=== PATIENT | female | born 1990 | race Caucasian/White ===

== ENCOUNTER → 2016-12-25 | Outpatient (CLI) | payer BC ==
[2016-12-25 12:10] LABS: Anion Gap 15 mmol/L; Blood Urea Nitrogen 26 mg/dL (7-17); Calcium 9.9 mg/dL (8.4-10.2); Carbon Dioxide 23 mmol/L (22-30); Chloride 108 mmol/L (98-107); Glucose 128 mg/dL (74-99); Non-African American GFR(MDRD) >60 (>60 ml/min/1.73 sqM); Potassium 3.9 mmol/L (3.5-5.1); Sodium 146 mmol/L (137-145)
== END | disposition home or self-care (01) ==
LOC: LABWHC1 11:32
PROVIDERS: ATTEND Internal Medicine
DX: E66.8 Other obesity (principal); E23.3 Hypothalamic dysfunction, not elsewhere classified; G90.8 Other disorders of autonomic nervous system; G47.35 Congenital central alveolar hypoventilation syndrome; Q87.89 Other specified congenital malformation syndromes, not elsewhere classified
CPT/HCPCS: 36415; 80048

== ENCOUNTER 2017-02-21 23:24 | Emergency (ER) | payer BC ==
[2017-02-21 23:27] LABS: Glucose,Whole Blood >600 mg/dL (75-99)
[2017-02-21 23:36] VITALS: RESP 18
[2017-02-21] MEDS ORDERED: INSULIN REGULAR 100 UNIT/ML VIAL IV ONE (23:38)
[2017-02-21] MEDS ORDERED: SODIUM CHLORIDE 0.9% 1,000 ML IV ONE (23:38)
[2017-02-21] MEDS ORDERED: INSULIN REGULAR 100 UNIT in SODIUM CHLORIDE 0.9% 100 ML IV ONE (23:38)
--- NOTE | 2017-02-21 23:42 | ED ---
General Adult HPI - General Chief complaint: Recheck/Abnormal Lab/Rx Stated complaint: Hyperglycemia Time Seen by Provider: 02/21/17 23:25 Source: EMS, RN notes reviewed Mode of arrival: EMS Limitations: no limitations - History of Present Illness Initial comments: This is a 26-year-old female who presents emergency Department with a past medical history significant for a endocrine disorder which causes her to be hyper a tree make hypokalemic and hyperglycemic. Patient comes in today because she started to have severe leg cramps and that usually indicates that she has hypokalemic. Patient also noted that her sugar was very high this evening she called EMS to come to the emergency department. Patient normally is seen at [facility]. Patient denies any recent fever chills or cough. Patient denies any difficulty breathing first breath per patient denies any chest pain or palpitations. Patient denies lightheadedness dizziness or near syncopal episode. Patient denies any abdominal pain patient denies nausea vomiting diarrhea. Patient complains of both legs being painful and this typical of her illness. - Related Data Home Medications Medication Instructions Recorded Confirmed Cholecalciferol [Vitamin D3] 1,000 unit PO BID 06/17/15 06/17/15 Desmopressin Intranasal [Ddavp 10 mcg NASAL BID 06/17/15 06/17/15 Nasal [place]] Estradiol [Climara 0.1 MG] 1 patch TRANSDERM Q7D 06/17/15 06/17/15 Glucagon Emergency Kit 1 mg SQ ONCE 06/17/15 06/17/15 Insulin Regular [HumuLIN R] 0 units SQ DIRECTED 06/17/15 06/17/15 Levothyroxine Sodium [Synthroid] 175 mcg PO DAILY 06/17/15 06/17/15 Liraglutide [Victoza 3-Ashkan] 1.8 mg SQ DAILY 06/17/15 06/17/15 Medroxyprogesterone Acetate 5 mg PO DAILY 06/17/15 06/17/15 [Provera] Potassium Bicarbonate/Cit AC 25 meq PO DAILY 06/17/15 06/17/15 [Klor-Con 25 (Effer. Tab)] Tretinoin [Retin-A] 45 gm TP DAILY 06/17/15 06/17/15 metFORMIN HCL [Riomet] 1,000 mg PO BID 06/17/15 06/17/15 Allergies Allergy/AdvReac Type Severity Reaction Status Date / Time Cephalosporins Allergy Rash/Hives Verified 03/27/15 20:59 Penicillins Allergy Rash/Hives Verified 03/27/15 20:59 Review of Systems ROS Statement: Those systems with pertinent positive or pertinent negative responses have been documented in the HPI. ROS Other: All systems not noted in ROS Statement are negative. Past Medical History Additional Past Medical History / Comment(s): Rohhad History of Any Multi-Drug Resistant Organisms: None Reported Past Surgical History: Orthopedic Surgery Additional Past Surgical History / Comment(s): coccyx removed, Past Psychological History: No Psychological Hx Reported Smoking Status: Never smoker Past Alcohol Use History: None Reported Past Drug Use History: None Reported General Exam - General Exam Comments Initial Comments: GENERAL: Patient is well-developed and well-nourished. Patient is nontoxic and well- hydrated and is in mild distress. ENT: Neck is soft and supple. No significant lymphadenopathy is noted. Oropharynx is clear. Moist mucous membranes. Neck has full range of motion without eliciting any pain. EYES: The sclera were anicteric and conjunctiva were pink and moist. Extraocular movements were intact and pupils were equal round and reactive to light. Eyelids were unremarkable. PULMONARY: Unlabored respirations. Good breath sounds bilaterally. No audible rales rhonchi or wheezing was noted. CARDIOVASCULAR: There is a regular rate and rhythm without any murmurs gallops or rubs. ABDOMEN: Soft and nontender with normal bowel sounds. No palpable organomegaly was noted. There is no palpable pulsatile mass. SKIN: Skin is clear with no lesions or rashes and otherwise unremarkable. NEUROLOGIC: Patient is alert and oriented x3. Cranial nerves II through XII are grossly intact. Motor and sensory are also intact. Normal speech, volume and content. Symmetrical smile. MUSCULOSKELETAL: Normal extremities with adequate strength and full range of motion. LYMPHATICS: No significant lymphadenopathy is noted PSYCHIATRIC: Normal psychiatric evaluation. Normal interpersonal interactions appears functionally intact in deals appropriately with others. No signs of depression. No signs of anxiety. Limitations: no limitations Course Vital Signs 02/21/17 02/22/17 02/22/17 23:24 00:09 00:25 Temperature 98.2 F Pulse Rate 119 H 118 H Pulse Rate [ 118 H Pulse Oximetery ] Respiratory 18 18 Rate Blood Pressure 140/85 138/78 O2 Sat by Pulse 93 L 94 L Oximetry 02/22/17 01:11 Temperature Pulse Rate 120 H Pulse Rate [ Pulse Oximetery ] Respiratory 18 Rate Blood Pressure 146/65 O2 Sat by Pulse 93 L Oximetry Medical Decision Making - Medical Decision Making EKG shows sinus tachycardia at a rate of 120 bpm OR interval is on 26 QRS is 80 QT interval 352 QTC is 497. Patient's EKG shows no ST segment elevation no ST segment depression. Patient's sugar was 868 in the sodium was 168. I gave the patient 2 L of fluid I started the patient on insulin drip after insulin bolus. I then called the epic beacon analyst at the [facility] he was on board with D done he wanted the patient transferred to [facility]. I spoke with the ER there Dr. Landaverde. He except that the patient transferred the patient to [facility]. - Lab Data Result diagrams: 02/21/17 23:42 02/21/17 23:42 Lab Results 02/21/17 02/21/17 02/21/17 Range/Units 23:26 23:42 23:42 WBC 3.7 L (3.8-10.6) k/uL RBC 5.03 (3.80-5.40) m/uL Hgb 14.0 (11.4-16.0) gm/dL Hct 46.2 H (34.0-46.0) % MCV 91.7 (80.0-100.0) fL MCH 27.7 (25.0-35.0) pg MCHC 30.2 L (31.0-37.0) g/dL RDW 19.4 H (11.5-15.5) % Plt Count 122 L (150-450) k/uL Neutrophils % 47 % Lymphocytes % 42 % Monocytes % 5 % Eosinophils % 2 % Basophils % 1 % Neutrophils # 1.8 (1.3-7.7) k/uL Lymphocytes # 1.6 (1.0-4.8) k/uL Monocytes # 0.2 (0-1.0) k/uL Eosinophils # 0.1 (0-0.7) k/uL Basophils # 0.0 (0-0.2) k/uL Hypochromasia Marked Poikilocytosis Slight Anisocytosis Slight Sodium 168 H* (137-145) mmol/L Potassium 3.6 (3.5-5.1) mmol/L Chloride 128 H* (98-107) mmol/L Carbon Dioxide 22 (22-30) mmol/L Anion Gap 18 mmol/L BUN 32 H (7-17) mg/dL Creatinine 0.99 (0.52-1.04) mg/dL Est GFR (MDRD) Af Amer >60 (>60 ml/min/1.73 sqM) Est GFR (MDRD) Non-Af >60 (>60 ml/min/1.73 sqM) Glucose 868 H* (74-99) mg/dL POC Glucose (mg/dL) >600 H (75-99) mg/dL POC Glu Wave Solder Offbearer ID Kavya Harris Calcium 10.3 H (8.4-10.2) mg/dL Total Bilirubin 1.0 (0.2-1.3) mg/dL AST 57 H (14-36) U/L ALT 59 H (9-52) U/L Alkaline Phosphatase 164 H (38-126) U/L Total Protein 8.8 H (6.3-8.2) g/dL Albumin 4.2 (3.5-5.0) g/dL Acetone, Qual Negative (Negative) 02/22/17 02/22/17 02/22/17 Range/Units 00:21 00:54 01:45 WBC (3.8-10.6) k/uL RBC (3.80-5.40) m/uL Hgb (11.4-16.0) gm/dL Hct (34.0-46.0) % MCV (80.0-100.0) fL MCH (25.0-35.0) pg MCHC (31.0-37.0) g/dL RDW (11.5-15.5) % Plt Count (150-450) k/uL Neutrophils % % Lymphocytes % % Monocytes % % Eosinophils % % Basophils % % Neutrophils # (1.3-7.7) k/uL Lymphocytes # (1.0-4.8) k/uL Monocytes # (0-1.0) k/uL Eosinophils # (0-0.7) k/uL Basophils # (0-0.2) k/uL Hypochromasia Poikilocytosis Anisocytosis Sodium (137-145) mmol/L Potassium (3.5-5.1) mmol/L Chloride (98-107) mmol/L Carbon Dioxide (22-30) mmol/L Anion Gap mmol/L BUN (7-17) mg/dL Creatinine (0.52-1.04) mg/dL Est GFR (MDRD) Af Amer (>60 ml/min/1.73 sqM) Est GFR (MDRD) Non-Af (>60 ml/min/1.73 sqM) Glucose (74-99) mg/dL POC Glucose (mg/dL) >600 H >600 H >600 H (75-99) mg/dL POC Glu Wave Solder Offbearer Linda Thakur, Linda Morelos Calcium (8.4-10.2) mg/dL Total Bilirubin (0.2-1.3) mg/dL AST (14-36) U/L ALT (9-52) U/L Alkaline Phosphatase (38-126) U/L Total Protein (6.3-8.2) g/dL Albumin (3.5-5.0) g/dL Acetone, Qual (Negative) Critical Care Time Critical Care Time: Yes Total Critical Care Time: 35 Disposition Clinical Impression: Hyperglycemia, Hypernatremia Disposition: OTHER INSTITUTION NOT DEFINED Referrals: Tigre Connell MD [Primary Care Provider] - 1-2 days Time of Disposition: 01:59 - Out of Hospital Transfer - Req. Specs Out of Hospital Transfer - Requested Specifics: Other Emergency Center ( [facility])
[2017-02-21 23:54] LABS: Anisocytosis Slight; Basophils % (A) 1 %; CH 26.2; CHCM 28.6; Eosinophils # (A) 0.1 k/uL (0-0.7); Eosinophils % (A) 2 %; HCT 46.2 % (34.0-46.0); HDW 3.58; Hypochromasia Marked; Luc # (Auto) 0.08; Luc % (Auto) 2; Lymphocytes # (A) 1.6 k/uL (1.0-4.8); Lymphocytes % (A) 42 %; MCH 27.7 pg (25.0-35.0); MCHC 30.2 g/dL (31.0-37.0); MCV 91.7 fL (80.0-100.0); Monocytes # (A) 0.2 k/uL (0-1.0); Monocytes % (A) 5 %; Neutrophils # (A) 1.8 k/uL (1.3-7.7); Neutrophils % (A) 47 %; Poikilocytosis Slight; RBC 5.03 m/uL (3.80-5.40); RDW 19.4 % (11.5-15.5); WBC 3.7 k/uL (3.8-10.6); WBC (Perox) 3.59
[2017-02-22 00:11] LABS: ALT 59 U/L (9-52); AST 57 U/L (14-36); Alkaline Phosphatase 164 U/L (38-126); Anion Gap 18 mmol/L; Blood Urea Nitrogen 32 mg/dL (7-17); Calcium 10.3 mg/dL (8.4-10.2); Carbon Dioxide 22 mmol/L (22-30); Non-African American GFR(MDRD) >60 (>60 ml/min/1.73 sqM); Potassium 3.6 mmol/L (3.5-5.1); Total Protein 8.8 g/dL (6.3-8.2)
[2017-02-22 00:19] LABS: Chloride 128 mmol/L (98-107); Glucose 868 mg/dL (74-99); Sodium 168 mmol/L (137-145)
[2017-02-22 00:23] LABS: Glucose,Whole Blood >600 mg/dL (75-99)
[2017-02-22] MEDS ORDERED: SODIUM CHLORIDE 0.9% 1,000 ML IV ONE (00:23)
[2017-02-22 00:55] LABS: Glucose,Whole Blood >600 mg/dL (75-99)
[2017-02-22 01:46] LABS: Glucose,Whole Blood >600 mg/dL (75-99)
[2017-02-22 02:02] VITALS: BP 140/65; PULSE 121; TEMP 98.4
[2017-02-22 02:09] LABS: Glucose,Whole Blood >600 mg/dL (75-99)
[2017-02-22 02:32] LABS: Anion Gap 13 mmol/L; Calcium 9.4 mg/dL (8.4-10.2); Carbon Dioxide 23 mmol/L (22-30); Non-African American GFR(MDRD) >60 (>60 ml/min/1.73 sqM); Total Bilirubin 0.7 mg/dL (0.2-1.3); Total Protein 7.5 g/dL (6.3-8.2)
[2017-02-22 02:40] LABS: AST 48 U/L (14-36); Blood Urea Nitrogen 29 mg/dL (7-17); Chloride 135 mmol/L (98-107); Glucose 677 mg/dL (74-99); Potassium 3.6 mmol/L (3.5-5.1); Sodium 171 mmol/L (137-145)
[2017-02-22 02:41] LABS: ALT 62 U/L (9-52); Alkaline Phosphatase 140 U/L (38-126)
== END 2017-02-22 02:18 | disposition short-term general hospital (02) ==
LOC: EC 23:24
DX: E87.0 Hyperosmolality and hypernatremia (principal); R73.9 Hyperglycemia, unspecified; E87.6 Hypokalemia; R00.0 Tachycardia, unspecified; Z79.84 Long term (current) use of oral hypoglycemic drugs; Z79.4 Long term (current) use of insulin; Z79.899 Other long term (current) drug therapy; Z88.0 Allergy status to penicillin; Z88.1 Allergy status to other antibiotic agents
CPT/HCPCS: 36415; 80053; 82009; 85025; 93005; 96360; 96361; 99291

== ENCOUNTER → 2017-11-15 | Outpatient (CLI) | payer BC ==
[2017-11-15 12:24] LABS: Anisocytosis Slight; HGB 11.7 gm/dL (11.4-16.0); Hypochromasia Marked; MCH 26.7 pg (25.0-35.0); MCHC 29.9 g/dL (31.0-37.0); MCV 89.1 fL (80.0-100.0); Mean Platelet Volume 8.7; Platelet Count 136 k/uL (150-450); Poikilocytosis Moderate; RBC 4.38 m/uL (3.80-5.40); RDW 18.4 % (11.5-15.5)
[2017-11-15 12:33] LABS: INR 1.1 (<1.2); Prothrombin Time 10.6 sec (9.0-12.0)
== END | disposition home or self-care (01) ==
LOC: LABWHC1 10:54
PROVIDERS: ATTEND Internal Medicine
DX: R16.0 Hepatomegaly, not elsewhere classified (principal)
CPT/HCPCS: 36415; 85027; 85610

== ENCOUNTER → 2017-12-05 | Outpatient (CLI) | payer BC ==
--- NOTE | 2017-12-05 15:09 | CT ---
EXAMINATION TYPE: CT chest wo con DATE OF EXAM: 12/05/2017 COMPARISON: NONE HISTORY: Liver cell carcinoma. Per patient, checking to see if it has spread. CT DLP: [address] of the chest was performed with lung and mediastinal window settings submitted. The la ck of contrast limits evaluation of the vascular, mediastinal and parenchymal structures including th e upper abdomen. LUNGS: The lungs are clear and free of infiltrate. No atelectasis. No pulmonary nodule or mass is de tected. No pleural effusion. No CT evidence of interstitial lung disease. MEDIASTINUM/ROBINSON: Thoracic aorta is of normal caliber with limited evaluation given lack of contrast . The heart is not enlarged. No evidence for mediastinal mass. No lymph nodes greater than 1cm. UPPER ABDOMEN: There is evidence of hepatosplenomegaly. A portion of the liver is included on the tisha dy. OTHER: No significant other abnormality. IMPRESSION: 1. No evidence for metastatic disease to the chest.
== END | disposition home or self-care (01) ==
LOC: RADCTMAIN 14:22
PROVIDERS: ATTEND Internal Medicine
DX: C22.0 Liver cell carcinoma (principal)
CPT/HCPCS: 71250

== ENCOUNTER → 2018-03-24 | Outpatient (CLI) | payer BC ==
[2018-03-24 10:30] LABS: INR 1.2 (<1.2); Prothrombin Time 11.1 sec (9.0-12.0)
[2018-03-24 10:31] LABS: Anisocytosis Slight; Basophils % (A) 1 %; Eosinophils # (A) 0.1 k/uL (0-0.7); Eosinophils % (A) 4 %; HCT 38.5 % (34.0-46.0); HGB 12.5 gm/dL (11.4-16.0); Hypochromasia Slight; Lymphocytes # (A) 1.3 k/uL (1.0-4.8); Lymphocytes % (A) 43 %; MCH 26.4 pg (25.0-35.0); MCHC 32.3 g/dL (31.0-37.0); MCV 81.7 fL (80.0-100.0); Mean Platelet Volume 8.3; Monocytes # (A) 0.2 k/uL (0-1.0); Monocytes % (A) 5 %; Neutrophils # (A) 1.3 k/uL (1.3-7.7); Neutrophils % (A) 45 %; Platelet Count 100 k/uL (150-450); RBC 4.71 m/uL (3.80-5.40); RDW 16.9 % (11.5-15.5)
[2018-03-24 16:08] LABS: Iron Saturation 12.23 (12.00-45.00)
== END ==
LOC: LABWHC1 10:03
PROVIDERS: ATTEND Internal Medicine
DX: E11.9 Type 2 diabetes mellitus without complications (principal); K76.0 Fatty (change of) liver, not elsewhere classified; K74.69 Other cirrhosis of liver
CPT/HCPCS: 36415; 82728; 83540; 83550; 85025; 85027; 85610

== ENCOUNTER → 2019-09-22 | Outpatient (CLI) | payer BC ==
[2019-09-22 09:28] LABS: Basophils # (A) 0.1 k/uL (0-0.2); Basophils % (A) 2 %; Eosinophils # (A) 0.2 k/uL (0-0.7); Eosinophils % (A) 5 %; HCT 40.1 % (34.0-46.0); HGB 12.8 gm/dL (11.4-16.0); Lymphocytes # (A) 1.6 k/uL (1.0-4.8); Lymphocytes % (A) 35 %; MCH 26.6 pg (25.0-35.0); Mean Platelet Volume 9.1; Monocytes # (A) 0.3 k/uL (0-1.0); Monocytes % (A) 6 %; Neutrophils # (A) 2.2 k/uL (1.3-7.7); Neutrophils % (A) 50 %; Platelet Count 114 k/uL (150-450); RBC 4.83 m/uL (3.80-5.40); RDW 15.8 % (11.5-15.5); WBC 4.5 k/uL (3.8-10.6)
[2019-09-22 16:35] LABS: African American GFR (CKD) 153.7 (60.0-200.0); Albumin 3.7 g/dL (3.80-4.90); Albumin/Globulin Ratio 1.76 (1.60-3.17); Anion Gap 8.5 mmol/L (4.00-12.00); Calcium 8.8 mg/dL (8.7-10.3); Carbon Dioxide 23.5 mmol/L (21.6-31.8); Globulin 2.1 g/dL (1.6-3.3); Non-African American GFR(CKD) 132.6 (60.0-200.0); Potassium 3.5 mmol/L (3.5-5.5); Total Bilirubin 0.6 mg/dL (0.2-1.2); Total Protein 5.8 g/dL (6.2-8.2)
== END | disposition home or self-care (01) ==
LOC: LABWHC1 08:53
PROVIDERS: ATTEND Physician Assistant
DX: K76.0 Fatty (change of) liver, not elsewhere classified (principal)
CPT/HCPCS: 36415; 80053; 85025

== ENCOUNTER → 2019-11-04 | Outpatient (CLI) | payer BC ==
[2019-11-04 09:40] LABS: African American GFR (CKD) >90 (>60 ml/min/1.73 sqM); Anion Gap 9 mmol/L; Blood Urea Nitrogen 18 mg/dL (7-17); Calcium 8.4 mg/dL (8.4-10.2); Carbon Dioxide 20 mmol/L (22-30); Chloride 104 mmol/L (98-107); Glucose 85 mg/dL (74-99); Magnesium 1.6 mg/dL (1.6-2.3); Non-African American GFR(CKD) >90 (>60 ml/min/1.73 sqM); Potassium 3.4 mmol/L (3.5-5.1); Sodium 133 mmol/L (137-145)
[2019-11-04 09:58] LABS: Anisocytosis Slight; Basophils % (A) 1 %; Eosinophils # (A) 0.1 k/uL (0-0.7); Eosinophils % (A) 3 %; HCT 35.9 % (34.0-46.0); HGB 12.2 gm/dL (11.4-16.0); Lymphocytes # (A) 1.6 k/uL (1.0-4.8); Lymphocytes % (A) 39 %; MCH 26.9 pg (25.0-35.0); MCHC 34.1 g/dL (31.0-37.0); MCV 78.8 fL (80.0-100.0); Mean Platelet Volume 8.6; Microcytosis Slight; Monocytes # (A) 0.2 k/uL (0-1.0); Monocytes % (A) 6 %; Neutrophils % (A) 49 %; Platelet Count 132 k/uL (150-450); Poikilocytosis Slight; RBC 4.55 m/uL (3.80-5.40); RDW 16.5 % (11.5-15.5); WBC 4.1 k/uL (3.8-10.6)
== END ==
LOC: LABWHC1 09:01
DX: A08.32 Astrovirus enteritis (principal)
CPT/HCPCS: 36415; 80048; 83735; 85025

== ENCOUNTER → 2019-11-12 | Outpatient (CLI) | payer BC ==
[2019-11-12 09:54] LABS: Anisocytosis Slight; Basophils # (A) 0.1 k/uL (0-0.2); Basophils % (A) 2 %; Eosinophils # (A) 0.1 k/uL (0-0.7); Eosinophils % (A) 2 %; HCT 39.6 % (34.0-46.0); HGB 13.1 gm/dL (11.4-16.0); Lymphocytes # (A) 1.3 k/uL (1.0-4.8); Lymphocytes % (A) 34 %; MCH 26.7 pg (25.0-35.0); MCHC 33.2 g/dL (31.0-37.0); MCV 80.3 fL (80.0-100.0); Mean Platelet Volume 8.9; Monocytes # (A) 0.3 k/uL (0-1.0); Monocytes % (A) 9 %; Neutrophils # (A) 1.9 k/uL (1.3-7.7); Neutrophils % (A) 51 %; Platelet Count 133 k/uL (150-450); Poikilocytosis Slight; RBC 4.93 m/uL (3.80-5.40); RDW 16.6 % (11.5-15.5); WBC 3.7 k/uL (3.8-10.6)
[2019-11-12 10:07] LABS: African American GFR (CKD) >90 (>60 ml/min/1.73 sqM); Anion Gap 13 mmol/L; Blood Urea Nitrogen 21 mg/dL (7-17); Calcium 9.2 mg/dL (8.4-10.2); Carbon Dioxide 19 mmol/L (22-30); Chloride 99 mmol/L (98-107); Glucose 98 mg/dL (74-99); Magnesium 1.7 mg/dL (1.6-2.3); Non-African American GFR(CKD) >90 (>60 ml/min/1.73 sqM); Potassium 3.8 mmol/L (3.5-5.1); Sodium 131 mmol/L (137-145)
== END | disposition home or self-care (01) ==
LOC: LABWHC1 08:56
PROVIDERS: ATTEND Nurse Practitioner
DX: A08.32 Astrovirus enteritis (principal)
CPT/HCPCS: 36415; 80048; 83735; 85025

== ENCOUNTER → 2020-02-16 | Outpatient (CLI) | payer BC ==
[2020-02-16 19:08] LABS: Hemoglobin A1C 5.2 % (4.0-6.0)
[2020-02-16 19:35] LABS: T4, Free (Free Thyroxine) 1.9 ng/dL (0.80-1.80)
[2020-02-16 20:54] LABS: Prolactin 59.8 ng/mL (2.8-29.2)
== END | disposition home or self-care (01) ==
LOC: LABWHC1 11:02
PROVIDERS: ATTEND Internal Medicine
DX: E23.3 Hypothalamic dysfunction, not elsewhere classified (principal); E66.8 Other obesity; G90.8 Other disorders of autonomic nervous system; G47.35 Congenital central alveolar hypoventilation syndrome; Q87.89 Other specified congenital malformation syndromes, not elsewhere classified; E55.9 Vitamin D deficiency, unspecified; E88.81 Metabolic syndrome and other insulin resistance; E08.8 Diabetes mellitus due to underlying condition with unspecified complications; Z79.4 Long term (current) use of insulin
CPT/HCPCS: 36415; 82306; 83036; 84146; 84439

== ENCOUNTER → 2020-03-29 | Outpatient (CLI) | payer BC ==
[2020-03-29 21:06] LABS: Chol/HDL Ratio 3.39
== END | disposition home or self-care (01) ==
LOC: LABWHC1 08:36
PROVIDERS: ATTEND Internal Medicine
DX: E88.81 Metabolic syndrome and other insulin resistance (principal); E08.8 Diabetes mellitus due to underlying condition with unspecified complications; Z79.4 Long term (current) use of insulin
CPT/HCPCS: 36415; 80061

== ENCOUNTER → 2020-09-28 | Outpatient (CLI) | payer BC ==
[2020-09-28 12:56] LABS: Prothrombin Time 10.8 sec (9.0-12.0)
[2020-09-28 13:05] LABS: Basophils % (A) 1 %; Eosinophils # (A) 0.1 k/uL (0-0.7); Eosinophils % (A) 4 %; HGB 13.2 gm/dL (11.4-16.0); Lymphocytes % (A) 36 %; MCH 27.7 pg (25.0-35.0); MCHC 33.1 g/dL (31.0-37.0); MCV 83.8 fL (80.0-100.0); Mean Platelet Volume 8.7; Monocytes # (A) 0.2 k/uL (0-1.0); Monocytes % (A) 8 %; Neutrophils # (A) 1.4 k/uL (1.3-7.7); Neutrophils % (A) 48 %; Poikilocytosis Slight; RBC 4.78 m/uL (3.80-5.40); RDW 15.1 % (11.5-15.5); WBC 2.9 k/uL (3.8-10.6)
[2020-09-28 13:38] LABS: Platelet Count 87 k/uL (150-450)
[2020-09-28 13:59] LABS: ALT 99 U/L (4-34); AST 67 U/L (14-36); African American GFR (CKD) >90 (>60 ml/min/1.73 sqM); Albumin/Globulin Ratio 1.1; Alkaline Phosphatase 146 U/L (38-126); Anion Gap 8 mmol/L; Blood Urea Nitrogen 28 mg/dL (7-17); Calcium 9.6 mg/dL (8.4-10.2); Carbon Dioxide 24 mmol/L (22-30); Chloride 109 mmol/L (98-107); Globulin 3.5 g/dL; Glucose 154 mg/dL (74-99); Non-African American GFR(CKD) >90 (>60 ml/min/1.73 sqM); Potassium 3.9 mmol/L (3.5-5.1); Sodium 141 mmol/L (137-145); Total Bilirubin 0.7 mg/dL (0.2-1.3); Total Protein 7.5 g/dL (6.3-8.2)
== END | disposition home or self-care (01) ==
LOC: LABWHC1 11:45
PROVIDERS: ATTEND Physician Assistant
DX: C22.0 Liver cell carcinoma (principal); Z88.1 Allergy status to other antibiotic agents; Z88.0 Allergy status to penicillin
CPT/HCPCS: 36415; 80053; 82105; 85025; 85610

== ENCOUNTER → 2021-05-24 | Outpatient (CLI) | payer BC ==
[2021-05-24 16:09] LABS: INR 1.02 (0.90-1.11); Prothrombin Time 11.1 sec (9.9-11.9)
[2021-05-24 19:21] LABS: Basophils # (A) 0.04 X 10*3/uL (0.00-0.10); Eosinophils # (A) 0.16 X 10*3/uL (0.04-0.35); Eosinophils % (A) 4.1 %; HCT 42.7 % (37.2-46.3); HGB 13.2 g/dL (12.0-15.0); Lymphocytes # (A) 1.56 X 10*3/uL (0.90-5.00); Lymphocytes % (A) 40.3 %; MCHC 30.9 g/dL (32.0-37.0); MCV 87.3 fL (80.0-97.0); Mean Platelet Volume 11.6 fL (9.5-12.2); Monocytes # (A) 0.37 X 10*3/uL (0.20-1.00); Monocytes % (A) 9.6 %; Neutrophils # (A) 1.74 X 10*3/uL (1.80-7.70); Platelet Count 88 X 10*3/uL (140-440); RBC 4.89 X 10*6/uL (4.10-5.20); RDW 14.7 % (11.5-14.5); WBC 3.87 X 10*3/uL (4.50-10.00)
[2021-05-25 03:31] LABS: African American GFR (CKD) 88.2 (60.0-200.0); Albumin 4.3 g/dL (3.80-4.90); Albumin/Globulin Ratio 1.48 (1.60-3.17); Anion Gap 10.8 mmol/L (4.00-12.00); Bilirubin, Conjugated 0.3 mg/dL (0.20-0.40); Bilirubin,Unconjugated 0.6 mg/dL; Calcium 9.7 mg/dL (8.7-10.3); Carbon Dioxide 23.2 mmol/L (21.6-31.8); Globulin 2.9 g/dL (1.6-3.3); Non-African American GFR(CKD) 76.1 (60.0-200.0); Potassium 3.6 mmol/L (3.5-5.5); Total Bilirubin 0.9 mg/dL (0.3-1.2); Total Protein 7.2 g/dL (6.2-8.2)
== END | disposition home or self-care (01) ==
LOC: LABWHC1 09:44
PROVIDERS: ATTEND Physician Assistant
DX: C22.0 Liver cell carcinoma (principal)
CPT/HCPCS: 36415; 80048; 80076; 82105; 85025; 85610

== ENCOUNTER → 2021-05-28 | Outpatient (CLI) | payer BC ==
[2021-05-28 09:43] LABS: African American GFR (CKD) >90 (>60 ml/min/1.73 sqM); Anion Gap 9 mmol/L; Blood Urea Nitrogen 26 mg/dL (7-17); Calcium 9.3 mg/dL (8.4-10.2); Carbon Dioxide 22 mmol/L (22-30); Chloride 110 mmol/L (98-107); Glucose 87 mg/dL (74-99); Non-African American GFR(CKD) >90 (>60 ml/min/1.73 sqM); Potassium 3.5 mmol/L (3.5-5.1); Sodium 141 mmol/L (137-145)
== END | disposition home or self-care (01) ==
LOC: LABWHC1 08:38
PROVIDERS: ATTEND Internal Medicine
DX: Q87.89 Other specified congenital malformation syndromes, not elsewhere classified (principal); E66.8 Other obesity; E23.3 Hypothalamic dysfunction, not elsewhere classified; G90.8 Other disorders of autonomic nervous system; G47.35 Congenital central alveolar hypoventilation syndrome
CPT/HCPCS: 36415; 80048

== ENCOUNTER → 2021-11-20 | Outpatient (CLI) | payer BC ==
[2021-11-21 00:40] LABS: ALT 66 U/L (8-44); AST 49 U/L (13-35); Albumin 4.2 g/dL (3.8-4.9); Albumin/Globulin Ratio 1.43 (1.60-3.17); Alkaline Phosphatase 141 U/L (41-126); BUN/Creat Ratio 42.55 Ratio (12.00-20.00); Bilirubin, Conjugated <0.20 mg/dL (0.20-0.40); Blood Urea Nitrogen 37.4 mg/dL (9.0-27.0); Calcium 9.5 mg/dL (8.7-10.3); Carbon Dioxide 20.4 mmol/L (20.0-27.5); Chloride 116 mmol/L (96-109); Glucose 168 mg/dL (70-110); Non-African American GFR(CKD) 88.9 (60.0-200.0); Potassium 4.1 mmol/L (3.5-5.5); Sodium 152 mmol/L (135-145); Total Protein 7.2 g/dL (6.2-8.2)
[2021-11-21 01:07] LABS: Basophils # (A) 0.03 X 10*3/uL (0.00-0.10); Basophils % (A) 0.8 %; Elliptocytes 2+; Eosinophils # (A) 0.12 X 10*3/uL (0.04-0.35); Eosinophils % (A) 3.2 %; HCT 42.1 % (37.2-46.3); HGB 13.4 g/dL (12.0-15.0); Immature Grans, Automated 0 %; Lymphocytes # (A) 1.11 X 10*3/uL (0.90-5.00); Lymphocytes % (A) 29.5 %; MCH 27.8 pg (27.0-32.0); MCHC 31.8 g/dL (32.0-37.0); MCV 87.3 fL (80.0-97.0); Mean Platelet Volume 11.3 fL (9.5-12.2); Monocytes # (A) 0.26 X 10*3/uL (0.20-1.00); Monocytes % (A) 6.9 %; NRBC Per 100 WBC 0 /100 WBCS (0.0-0.0); Neutrophils # (A) 2.24 X 10*3/uL (1.80-7.70); Neutrophils % (A) 59.6 %; Platelet Count 95 X 10*3/uL (140-440); RBC 4.82 X 10*6/uL (4.10-5.20); RDW 16.3 % (11.5-14.5); WBC 3.76 X 10*3/uL (4.50-10.00)
== END | disposition home or self-care (01) ==
LOC: LABWHC1 15:17
PROVIDERS: ATTEND Internal Medicine
DX: Q87.89 Other specified congenital malformation syndromes, not elsewhere classified (principal); E66.8 Other obesity; E23.3 Hypothalamic dysfunction, not elsewhere classified; G90.8 Other disorders of autonomic nervous system; G47.35 Congenital central alveolar hypoventilation syndrome
CPT/HCPCS: 36415; 80053; 82248; 85025

== ENCOUNTER → 2023-03-24 | Outpatient (CLI) | payer BC ==
[2023-03-24 12:38] LABS: INR 0.9 (<1.2); Prothrombin Time 9.9 sec (9.0-12.0)
[2023-03-24 16:48] LABS: Basophils # (A) 0.05 X 10*3/uL (0.00-0.10); Basophils % (A) 1.5 %; Eosinophils # (A) 0.08 X 10*3/uL (0.04-0.35); Eosinophils % (A) 2.5 %; HCT 36.2 % (37.2-46.3); HGB 11.3 d/dL (12.0-15.0); Lymphocytes % (A) 33.8 %; MCH 26.4 pg (27.0-32.0); MCHC 31.2 d/dL (32.0-37.0); MCV 84.6 FL (80.0-97.0); Mean Platelet Volume 11.3 FL (9.5-12.2); Monocytes # (A) 0.24 X 10*3/uL (0.20-1.00); Monocytes % (A) 7.4 %; NRBC Per 100 WBC 0 X 10*3/uL (0.00-0.01); Neutrophils # (A) 1.77 X 10*3/uL (1.80-7.70); Neutrophils % (A) 54.5 %; Platelet Count 110 X 10*3/uL (140-440); RBC 4.28 X 10*6/uL (4.10-5.20); WBC 3.25 X 10*3/uL (4.50-10.00)
[2023-03-24 17:28] LABS: ALT 52 U/L (8-44); AST 48 U/L (13-35); Albumin 3.9 d/dL (3.8-4.9); Albumin/Globulin Ratio 1.18 Ratio (1.60-3.17); Alkaline Phosphatase 186 U/L (41-126); BUN/Creat Ratio 36.86 Ratio (12.00-20.00); Bilirubin, Conjugated <0.20 mg/dL (0.20-0.40); Bilirubin,Unconjugated >0.30 mg/dL (0.20-1.00); Blood Urea Nitrogen 25.8 mg/dL (9.0-27.0); Calcium 9.5 mg/dL (8.7-10.3); Carbon Dioxide 25.2 mmol/L (21.6-31.8); Chloride 106 mmol/L (96-109); Globulin 3.3 d/dL (1.6-3.3); Glucose 152 mg/dL (70-110); Potassium 3.8 mmol/L (3.5-5.5); Sodium 143 mmol/L (135-145); Total Bilirubin 0.5 mg/dL (0.3-1.2); Total Protein 7.2 d/dL (6.2-8.2)
== END | disposition home or self-care (01) ==
LOC: LABWHC1 10:30
PROVIDERS: ATTEND Pediatrics
DX: K74.60 Unspecified cirrhosis of liver (principal)
CPT/HCPCS: 36415; 80048; 80076; 82105; 85025; 85610

== ENCOUNTER → 2024-01-06 | Outpatient (CLI) | payer BC ==
[2024-01-06 19:13] LABS: Basophils # (A) 0.04 X 10*3/uL (0.00-0.10); Basophils % (A) 1.4 %; Eosinophils # (A) 0.09 X 10*3/uL (0.04-0.35); Eosinophils % (A) 3.1 %; HCT 36.3 % (37.2-46.3); HGB 11.6 g/dL (12.0-15.0); Immature Grans, Automated 0 %; Lymphocytes # (A) 1.01 X 10*3/uL (0.90-5.00); Lymphocytes % (A) 35.2 %; MCH 27.4 pg (27.0-32.0); MCV 85.6 FL (80.0-97.0); Mean Platelet Volume 11.1 FL (9.5-12.2); Monocytes # (A) 0.26 X 10*3/uL (0.20-1.00); Monocytes % (A) 9.1 %; NRBC Per 100 WBC 0 X 10*3/uL (0.00-0.01); Neutrophils # (A) 1.47 X 10*3/uL (1.80-7.70); Neutrophils % (A) 51.2 %; Platelet Count 75 X 10*3/uL (140-440); RBC 4.24 X 10*6/uL (4.10-5.20); RDW 18.2 % (11.5-14.5); WBC 2.87 X 10*3/uL (4.50-10.00)
[2024-01-06 22:17] LABS: ALT 77 U/L (8-44); AST 79 U/L (13-35); Albumin/Globulin Ratio 1.29 Ratio (1.60-3.17); Alkaline Phosphatase 159 U/L (41-126); BUN/Creat Ratio 43.62 Ratio (12.00-20.00); Blood Urea Nitrogen 34.9 mg/dL (9.0-27.0); Calcium 9.7 mg/dL (8.7-10.3); Carbon Dioxide 23.5 mmol/L (21.6-31.8); Chloride 111 mmol/L (96-109); Globulin 3.1 g/dL (1.6-3.3); Glucose 69 mg/dL (70-110); Potassium 3.8 mmol/L (3.5-5.5); Sodium 148 mmol/L (135-145); Total Bilirubin 0.5 mg/dL (0.3-1.2); Total Protein 7.1 g/dL (6.2-8.2)
== END | disposition home or self-care (01) ==
LOC: LABWHC1 14:09
PROVIDERS: ATTEND Internal Medicine
DX: Z79.4 Long term (current) use of insulin (principal); E08.8 Diabetes mellitus due to underlying condition with unspecified complications
CPT/HCPCS: 36415; 80053; 83036; 85025

== ENCOUNTER → 2024-09-13 | Outpatient (CLI) | payer BC ==
[2024-09-13 15:36] LABS: BUN/Creat Ratio 49.75 Ratio (12.00-20.00); Blood Urea Nitrogen 39.8 mg/dL (9.0-27.0); Glucose 103 mg/dL (70-110)
[2024-09-13 15:37] LABS: ALT 70 U/L (8-44); AST 70 U/L (13-35); Albumin/Globulin Ratio 1.38 Ratio (1.60-3.17); Alkaline Phosphatase 140 U/L (41-126); Calcium 9.9 mg/dL (8.7-10.3); Carbon Dioxide 22.2 mmol/L (21.6-31.8); Chloride 111 mmol/L (96-109); Globulin 2.9 g/dL (1.6-3.3); Sodium 149 mmol/L (135-145); Total Bilirubin 0.5 mg/dL (0.3-1.2); Total Protein 6.9 g/dL (6.2-8.2)
[2024-09-13 17:32] LABS: HGB 11.3 g/dL (12.0-15.0); MCH 26.8 pg (27.0-32.0); MCHC 31.4 g/dL (32.0-37.0); MCV 85.5 FL (80.0-97.0); Mean Platelet Volume 10.7 FL (9.5-12.2); NRBC Per 100 WBC 0 X 10*3/uL (0.00-0.01); Platelet Count 96 X 10*3/uL (140-440); RBC 4.21 X 10*6/uL (4.10-5.20); RDW 17.9 % (11.5-14.5); WBC 3.57 X 10*3/uL (4.50-10.00)
[2024-09-13 17:33] LABS: Basophils # (A) 0.04 X 10*3/uL (0.00-0.10); Basophils % (A) 1.1 %; Eosinophils # (A) 0.19 X 10*3/uL (0.04-0.35); Eosinophils % (A) 5.3 %; Lymphocytes # (A) 1.44 X 10*3/uL (0.90-5.00); Lymphocytes % (A) 40.3 %; Monocytes # (A) 0.39 X 10*3/uL (0.20-1.00); Monocytes % (A) 10.9 %; Neutrophils % (A) 42.1 %
== END | disposition home or self-care (01) ==
LOC: LABWHC1 12:29
PROVIDERS: ATTEND Internal Medicine
DX: E23.3 Hypothalamic dysfunction, not elsewhere classified (principal); E08.8 Diabetes mellitus due to underlying condition with unspecified complications; G90.89 Other disorders of autonomic nervous system; G47.35 Congenital central alveolar hypoventilation syndrome; E66.89 Other obesity not elsewhere classified; Q87.89 Other specified congenital malformation syndromes, not elsewhere classified; Z79.4 Long term (current) use of insulin
CPT/HCPCS: 36415; 80053; 83036; 85025